=== PATIENT | female | born 2005 | race Caucasian/White ===

== ENCOUNTER 2024-03-25 12:45 | Emergency (ER) | payer BC ==
[2024-03-25 13:50] LABS: Absolute Lymphocytes (CBC) 1.4 K/uL (0.7-4.9); Absolute Monocytes 0.3 K/uL (0.1-1.3); Absolute Neutrophil 5.3 K/uL (1.8-8.0); Basophils % 0.3 % (0-1.3); Eosinophils % 0.4 % (0-4.4); Hemoglobin 11.6 g/dL (12.0-15.0); Lymphocytes % 19.9 % (15.3-44.8); MCH 29.3 pg (27.0-35.0); MCV 86.2 fL (80-100); Monocytes % 4.6 % (3.3-12.3); Neutrophils % 74.8 % (41.7-73.7); Platelets 182 thou/uL (152-406); RBC Red Blood Cell Count 3.95 M/uL (3.86-4.86); Red Cell Distribution Width 14.2 % (12.1-15.2)
--- NOTE | 2024-03-25 13:51 | RAD REPORT ---
EXAM: CT brain without contrast HISTORY: headache, syncope COMPARISON: None TECHNIQUE: Multiple contiguous axial images were obtained and a CT of the brain without contrast. Sag ittal and coronal reformats were performed. One or more of the following dose reduction techniques were used: Automated exposure control, adjust ment of the mA and/or kV according to patient size, and/or iterative reconstruction. FINDINGS: No evidence of hydrocephalus, intracranial hemorrhage, or extra-axial fluid collection. The brain is normal in morphology. 5-6 millimeters hypodensity in the region of this left sylvian fi ssure noted which may be related to technique.. No evidence of midline shift or areas of brain edema. The calvarium is intact. The visualized paranasal sinuses and mastoid air cells are essentially clear . IMPRESSION: No evidence of acute intracranial abnormality. Small 5 mm hypoechoic structure in the region of left sylvian fissure probably artifactual etiology r elated to technical factors. Nonemergent MRI brain follow-up could be performed for further evaluation.
[2024-03-25 14:08] LABS: ALT/SGPT 17 U/L (13-56); Albumin 3.4 g/dL (3.4-5.0); Albumin/Globulin Ratio 1.1 (1.1-1.8); Alkaline Phosphatase 43 U/L (45-117); Anion Gap 7.5 mEq/L (5.0-15.0); BUN Blood Urea Nitrogen 12 mg/dL (7-18); Bicarbonate 25 mEq/L (21-32); Bilirubin Total 0.3 mg/dL (0.2-1.0); Globulin 3.1 g/dL (2.3-3.5); Glomerular Filtration Rate 129 ml/min (=/>90); Glucose Level 90 mg/dL (74-106); Protein, Total 6.5 g/dL (6.4-8.2); Sodium Level 138 mEq/L (136-145)
[2024-03-25 14:09] LABS: AST/SGOT 15 U/L (15-37); Bilirubin Direct < 0.2 mg/dL (0-0.2); Bilirubin Indirect, Calculated 0.1 mg/dL (0.2-0.8); Potassium 4.5 mEq/L (3.5-5.1); Troponin High Sensitivity < 3.0 pg/mL (<58.9)
--- NOTE | 2024-03-25 14:38 | RAD REPORT ---
EXAM: Chest Single View HISTORY: syncope COMPARISON: None. FINDINGS: LUNGS/PLEURA: The lungs are clear. No pleural effusions or pneumothorax. No pulmonary edema. MEDIASTINUM: The mediastinal silhouette is within normal limits. CARDIAC: The cardiac silhouette is within normal limits. UPPER ABDOMEN: No significant abnormality. BONES: No acute abnormality. LINES/TUBES/OTHER: N/A IMPRESSION: No evidence of acute cardiopulmonary disease.
--- NOTE | 2024-03-25 14:40 | EDPHYS ---
Physician Documentation [facility] Name: Palmira Mckenna Age: 18 yrs Sex: Female : 2005 Arrival Date: 03/25/2024 Time: 12:45 Bed 15 Private MD: ED Physician Vaibhav Henry HPI: 03/25 13:24 This 18 yrs old Female presents to ER via EMS with complaints of Syncope. ms3 13:24 Rossana Valencia is a 18-year-old female who presents to the emergency department following ms3 an episode of syncope. 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 She does not recall how long she was unconscious. After regaining consciousness, she experienced a headache, which she rates as a 7 out of 10 in severity. She denies any previous episodes of syncope and reports no known medical problems.. 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 - Infectious Disease History:: Denies. - Social history:: Smoking status: unknown. ROS: 13:24 Constitutional: Negative for fever, and chills. Cardiovascular: Negative for chest ms3 pain, and palpitations. Respiratory: Negative for shortness of breath, cough, wheezing, and pleuritic chest pain, Abdomen/GI: Negative for abdominal pain, nausea, vomiting, diarrhea, and constipation, MS/Extremity: Negative for injury and deformity, Skin: Negative for injury, rash, and discoloration, 13:24 Neuro: Positive for headache, syncope, Exam: 13:24 Constitutional: This is a well developed, well nourished patient who is awake, alert, ms3 and in no acute distress. Cardiovascular: Regular rate and rhythm with a normal S1 and S2. No gallops, murmurs, or rubs. Normal PMI, no JVD. No pulse deficits. Respiratory: Lungs have equal breath sounds bilaterally, clear to auscultation and percussion. No rales, rhonchi or wheezes noted. No increased work of breathing, no retractions or nasal flaring. Abdomen/GI: Soft, non-tender, with normal bowel sounds. No distension or tympany. No guarding or rebound. No evidence of tenderness throughout. Skin: Warm, dry with normal turgor. Normal color with no rashes, no lesions, and no evidence of cellulitis. MS/ Extremity: Pulses equal, no cyanosis. Neurovascular intact. Full, normal range of motion. Neuro: Awake and alert, GCS 15, oriented to person, place, time, and situation. Cranial nerves II-XII grossly intact. Motor strength 5/5 in all extremities. Sensory grossly intact. Cerebellar exam normal. Normal gait. 14:16 ECG was reviewed by the Attending Physician. ms3 Vital Signs: 13:00 BP 103 / 64; Pulse 78; Resp 18; Temp 98.2; Pulse Ox 100% on R/A; Weight 63.5 kg; Height kj2 5 ft. 4 in. ; 14:14 BP 110 / 68; Pulse 78; Resp 18; Pulse Ox 100% on R/A; kj2 15:03 BP 118 / 68; Pulse 80; Resp 20; Temp 98; Pulse Ox 100% on R/A; kj2 13:00 Body Mass Index 24.03 (63.50 kg, 162.56 cm) kj2 MDM: 13:10 Medical Screening Exam initiated ms3 13:24 Differential Diagnosis: cerebrovascular accident, emotional response, vasovagal episode.ms3 14:51 Data reviewed: vital signs, nurses notes, lab test result(s), EKG, radiologic studies, ms3 and as a result, I will discharge patient. Independent interpretation of the following test(s) in the Emergency Department EKG: See my EKG interpretation above. 03/25 13:11 Order name: Basic Metabolic Panel; Complete Time: 14:15 ms3 03/25 13:11 Order name: CBC with Diff; Complete Time: 14:08 ms3 03/25 13:11 Order name: Hepatic Function; Complete Time: 14:15 ms3 03/25 13:11 Order name: Magnesium; Complete Time: 14:15 ms3 03/25 13:11 Order name: Troponin High Sensitivity; Complete Time: 14:15 ms3 03/25 13:18 Order name: Test, Serum; Complete Time: 14:37 ms3 03/25 13:11 Order name: CT Head Brain wo Cont; Complete Time: 14:08 ms3 03/25 13:11 Order name: Chest Single View XRAY; Complete Time: 14:39 ms3 03/25 13:11 Order name: EKG; Complete Time: 13:11 ms3 03/25 13:11 Order name: Cardiac monitoring; Complete Time: 14:06 ms3 03/25 13:11 Order name: EKG - Nurse/Tech; Complete Time: 14:06 ms3 03/25 13:11 Order name: IV Saline Lock; Complete Time: 14:06 ms3 03/25 13:11 Order name: Labs collected and sent; Complete Time: 14:06 ms3 03/25 13:11 Order name: NPO; Complete Time: 14:06 ms3 03/25 13:11 Order name: O2 Per Protocol; Complete Time: 14:06 ms3 03/25 13:11 Order name: O2 Sat Monitoring; Complete Time: 14:06 ms3 EC:16 Rate is 71 beats/min. Rhythm is regular. QRS Collins is Normal. MI interval is normal. QRS ms3 interval is normal. Clinical impression: NSR w/ Non-specific ST/T Changes. Interpreted by me. Reviewed by me. Administered Medications: 13:41 Not Given (MD advised): [email or web address] application Topical once kj2 Point of Care Testing: Blood Glucose: 15:02 Blood Glucose: 90 mg/dL; kj2 Ranges: Critical Glucose Levels:Adult <50 mg/dl or >400 mg/dl <40 mg/dl or >180 mg/dl Disposition Summary: 03/25/24 14:40 Discharge Ordered Notes: Location: Home ms3 Condition: Stable ms3 Diagnosis - Syncope ms3 - Anemia, unspecified ms3 Followup: ms3 - With: Stewart Dupont DO - When: 2 - 3 days - Reason: Recheck today's complaints Discharge Instructions: - Discharge Summary Sheet ms3 - Anemia ms3 - Syncope ms3 Forms: - Medication Reconciliation Form ms3 - Antibiotic Education ms3 - Prescription Opioid Use ms3 - Patient Portal Instructions ms3 - Leadership Thank You Letter ms3 Signatures: Dispatcher [employer] Vaibhav Jaime DO DO ms3 Misti Pruitt, RN RN kj2
--- NOTE | 2024-03-25 14:40 | ER ---
Nurse's Notes [facility] Name: Palmira Mckenna Age: 18 yrs Sex: Female : 2005 Arrival Date: 03/25/2024 Time: 12:45 Bed 15 Private MD: Diagnosis: Syncope;Anemia, unspecified Presentation: 03/25 13:00 Chief complaint: EMS states: Syncope, passed out at work. Coronavirus screen: Client kj2 denies travel out of the [place] in the last 14 days. Ebola Screen: No symptoms or risks identified at this time. Initial Sepsis Screen: Does the patient meet any 2 criteria? No. Patient's initial sepsis screen is negative. Does the patient have a suspected source of infection? No. Patient's initial sepsis screen is negative. Risk Assessment: Do you want to hurt yourself or someone else? Patient reports no desire to harm self or others. Onset of symptoms was March 25, 2024. 13:00 Method Of Arrival: EMS: [facility] kj2 13:00 Acuity: ALTHEA 3 kj2 Triage Assessment: 13:00 General: Appears in no apparent distress. Behavior is calm, cooperative. Pain: Denies kj2 pain. Neuro: Reports dizziness, since 1 hour ago. Cardiovascular: Patient's skin is warm and dry. Respiratory: Airway is patent Respiratory effort is even, unlabored. GI: No signs and/or symptoms were reported involving the gastrointestinal system. : No signs and/or symptoms were reported regarding the genitourinary system. 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 - Infectious Disease History:: Denies. - Social history:: Smoking status: unknown. Screenin:00 [facility] ED Fall Risk Assessment (Adult) History of falling in the last 3 months, kj2 including since admission No falls in past 3 months (0 pts) Confusion or Disorientation No (0 pts) Intoxicated or Sedated No (0 pts) Impaired Gait No (0 pts) Mobility Assist Device Used No (0 pt) Altered Elimination No (0 pt) Score/Fall Risk Level 0 - 2 = Low Risk Maintained a safe environment, Hourly rounding (assess needs \T\ fall precautionary measures) done. Abuse screen: Denies threats or abuse. Denies injuries from another. Nutritional screening: No deficits noted. Tuberculosis screening: No symptoms or risk factors identified. Assessment: 13:00 General: see triage assessment. kj2 13:00 Neuro: Level of Consciousness is awake, alert, obeys commands, Oriented to person, kj2 place, time, situation. Cardiovascular: Rhythm is sinus rhythm. 14:14 Reassessment: Patient appears in no apparent distress at this time. Patient and/or kj2 family updated on plan of care and expected duration. Pain level reassessed. Patient is alert, oriented x 3, equal unlabored respirations, skin warm/dry/pink. 15:00 Reassessment: Patient appears in no apparent distress at this time. Patient and/or kj2 family updated on plan of care and expected duration. Pain level reassessed. Patient is alert, oriented x 3, equal unlabored respirations, skin warm/dry/pink. Vital Signs: 13:00 BP 103 / 64; Pulse 78; Resp 18; Temp 98.2; Pulse Ox 100% on R/A; Weight 63.5 kg; Height kj2 5 ft. 4 in. ; 14:14 BP 110 / 68; Pulse 78; Resp 18; Pulse Ox 100% on R/A; kj2 15:03 BP 118 / 68; Pulse 80; Resp 20; Temp 98; Pulse Ox 100% on R/A; kj2 13:00 Body Mass Index 24.03 (63.50 kg, 162.56 cm) kj2 ED Course: 12:49 Patient arrived in ED. ll1 12:53 Vaibhav Henry DO is Attending Physician. ms3 13:00 Patient has correct armband on for positive identification. Bed in low position. Call kj2 light in reach. Adult w/ patient. Provided Education on: call light. 13:00 Arm band placed on Patient placed in an exam room, on a stretcher. kj2 13:00 Maintain EMS IV. Dressing intact. Good blood return noted. Site clean \T\ dry. Gauge \T\ kj 2 site: 20g left AC. Flushed with 10 mL NS. 13:13 Misti Pruitt, RN is Primary Nurse. kj2 13:17 Triage completed. kj2 13:42 CT Head Brain wo Cont In Process Unspecified. EDMS 14:06 Test, Serum Sent. kj2 14:06 Chest Single View XRAY Sent. kj2 14:31 Chest Single View XRAY In Process Unspecified. EDMS 14:40 Stewart Dupont DO is Referral Physician. ms3 15:01 No provider procedures requiring assistance completed. IV discontinued, intact, kj2 bleeding controlled, No redness/swelling at site. Pressure dressing applied. Administered Medications: 13:41 Not Given (MD advised): lidocaine-[email or web address] application Topical once kj2 Medication: 13:21 VIS not applicable for this client. kj2 Point of Care Testing: Blood Glucose: 15:02 Blood Glucose: 90 mg/dL; kj2 Ranges: Outcome: 14:40 Discharge ordered by MD. ms3 15:01 Discharged to home kj2 15:01 Condition: stable 15:01 Discharge instructions given to patient, Instructed on discharge instructions, follow up and referral plans. Demonstrated understanding of instructions, follow-up care, 15:16 Patient left the ED. kj2 Signatures: Dispatcher [employer] EDMS Jorge Ortega, RN RN ll1 Vaibhav Henry DO DO ms3 Misti Pruitt, RN RN kj2
[2024-03-25 15:23] VITALS: O2SAT 100
[2024-03-25 15:25] VITALS: BP 118/68; TEMP 98
--- NOTE | 2024-03-26 11:30 | EKG ---
Test Date: 2024-03-25 Test Time: 13:58:01 Furniture And Bedding Inspector: JODIE MEASUREMENT RESULTS: Intervals: Rate: 71 IA: 172 QRSD: 84 QT: 372 QTc: 404 [place]: P: 63 IA: 172 QRS: 91 T: 72 INTERPRETIVE STATEMENTS: Normal sinus rhythm Rightward axis Borderline ECG No previous ECG available for comparison Electronically Signed On 03-26-24 11:28:11 [employer]AL [employer]ER STRIPPER by Edgar Dumont
== END 2024-03-25 15:16 | disposition home or self-care (01) ==
LOC: ER 12:45
DX: D64.9 Anemia, unspecified (principal); R51.9 Headache, unspecified
CPT/HCPCS: 36415; 70450; 71045; 80048; 80076; 83735; 84484; 84703; 85025; 93005